=== PATIENT | female | born 1975 | race Asian ===

== ENCOUNTER 2017-11-21 23:06 | Emergency (ER) | payer OTHER ==
[2017-11-22] MEDS: ACETAMINOPHEN 325 MG TAB PO (03:09)
== END 2017-11-22 03:44 | disposition home or self-care (01) ==
LOC: FTE 23:06
DX: R05 Cough (principal); E11.9 Type 2 diabetes mellitus without complications
CPT/HCPCS: 71010; 99283-25

== ENCOUNTER 2018-01-01 08:28 | Emergency (ER) | payer OTHER | END 2018-01-01 10:03 | disposition home or self-care (01) | LOC: FTE 08:28 | DX: J06.9 Acute upper respiratory infection, unspecified (principal); E11.9 Type 2 diabetes mellitus without complications | CPT/HCPCS: 99283; Z7502 ==

== ENCOUNTER 2018-03-30 09:26 | Emergency (ER) | payer OTHER | END 2018-03-30 10:39 | disposition home or self-care (01) | LOC: FTE 10:39 | DX: J06.9 Acute upper respiratory infection, unspecified (principal); I10 Essential (primary) hypertension; E11.9 Type 2 diabetes mellitus without complications | CPT/HCPCS: 99283; Z7502 ==

== ENCOUNTER 2019-01-30 16:37 | Emergency (ER) | payer OTHER ==
[2019-01-30] MEDS: DIPHTH/TET/ACEL PERTUSS (ADULT) 0.5 ML VIAL IM* (19:10)
[2019-01-30] MEDS: HYDROCODONE/APAP (5/325) TAB PO (19:11)
[2019-01-30] MEDS: CEFTRIAXONE 1 GM INJ IM (19:11)
[2019-01-30] MEDS: LIDOCAINE 1% (MPF) 5 ML VIAL INFIL (19:11)
[2019-01-30] MEDS: TRIMETHOPRIM/SULFAMETHOX (DS) TAB PO (19:11)
== END 2019-01-30 19:50 | disposition home or self-care (01) ==
LOC: FTE 16:37
DX: M79.641 Pain in right hand (principal); E11.9 Type 2 diabetes mellitus without complications; I10 Essential (primary) hypertension; Z23 Encounter for immunization; Z87.891 Personal history of nicotine dependence
CPT/HCPCS: 90471; 90715; 96372; 99284-25